=== PATIENT | male | born 2000 | race Caucasian/White ===

== ENCOUNTER 2020-01-06 00:59 | Outpatient (CLI) | payer BC, SELFPAY ==
[2020-01-06 16:30] LABS: Abs Immature Grans 0.01 k/cumm (0.0-0.09); Absolute Basophil Count 0.03 k/cumm (0.0-0.2); Absolute Lymphocyte Count 2.07 k/cumm (1.2-3.4); Absolute Monocyte Count 0.64 k/cumm (0.11-0.7); Absolute Neutrophil Count 4.04 k/cumm (1.2-6.7); Basophils % 0.4; Eosinophils % 4.2; HCT 42.4 % (40.0-50.0); HGB 14.8 g/dL (13.5-17.5); Immature Grans % 0.1 %; Lymphocytes % 29.2; Mean Corp. HGB Concentration 34.9 g/dL (32.0-36.0); Mean Corpuscular Hemoglobin 30.6 pg (27.0-33.0); Mean Corpuscular Volume 87.8 fL (80-95); Mean Platelet Volume 9.2 fL (8.0-11.0); Neutrophils % 57.1; Platelet Count 296 x1000/uL (130-400); RBC 4.83 m/cumm (4.50-6.00); RBC Distribution Width 12.7 % (11.8-14.1); White Blood Cell Count 7.09 k/cumm (4.4-10.8)
[2020-01-06 17:04] LABS: ALT 15 U/L (16-63); AST 21 U/L (15-37); Calculated LDL 107 mg/dL (<100); Cholesterol 177 mg/dL (<200); HDL Cholesterol 30 mg/dL (40-60); Triglyceride 201 mg/dL (<150)
== END 2020-01-06 01:19 ==
PROVIDERS: PCP Pediatrics; Visit Provider Dermatology
DX: L70.0 Acne vulgaris (principal); Z79.899 Other long term (current) drug therapy
CPT/HCPCS: 36415; 80061; 84450; 84460; 85025

== ENCOUNTER 2020-02-09 02:44 | Outpatient (CLI) | payer BC, SELFPAY ==
[2020-02-09 17:10] LABS: Absolute Basophil Count 0.02 k/cumm (0.0-0.2); Absolute Eosinophil Count 0.24 k/cumm (0.0-0.7); Absolute Lymphocyte Count 2.21 k/cumm (1.2-3.4); Absolute Monocyte Count 0.63 k/cumm (0.11-0.7); Absolute Neutrophil Count 2.77 k/cumm (1.2-6.7); Basophils % 0.3; Eosinophils % 4.1; HCT 42.9 % (40.0-50.0); HGB 14.8 g/dL (13.5-17.5); Lymphocytes % 37.6; Mean Corp. HGB Concentration 34.5 g/dL (32.0-36.0); Mean Corpuscular Hemoglobin 29.9 pg (27.0-33.0); Mean Corpuscular Volume 86.7 fL (80-95); Mean Platelet Volume 9.2 fL (8.0-11.0); Monocytes % 10.7; Neutrophils % 47.3; Platelet Count 309 x1000/uL (130-400); RBC 4.95 m/cumm (4.50-6.00); RBC Distribution Width 12.8 % (11.8-14.1); White Blood Cell Count 5.87 k/cumm (4.4-10.8)
[2020-02-09 17:52] LABS: ALT 16 U/L (16-63); AST 22 U/L (15-37); Calculated LDL 112 mg/dL (<100); Cholesterol 171 mg/dL (<200); HDL Cholesterol 32 mg/dL (40-60); Triglyceride 137 mg/dL (<150)
== END 2020-02-09 03:04 ==
PROVIDERS: PCP Pediatrics; Visit Provider Dermatology
DX: L70.0 Acne vulgaris (principal); Z79.899 Other long term (current) drug therapy
CPT/HCPCS: 36415; 80061; 84450; 84460; 85025

== ENCOUNTER 2020-06-18 10:53 | Emergency (ER) | payer BC, SELFPAY ==
[2020-06-18 10:56] VITALS: BP 131/77; PULSE 80; RESP 16; TEMP 36.1; O2SAT 94
--- NOTE | 2020-06-18 11:00 | DI.RAD_ITS ---
EXAM: XR HAND RT COMPLETE CLINICAL HISTORY: struck on engine block TECHNIQUE: COMPARISON: No exams were available for comparison FINDINGS: Three views were obtained. No fracture is seen. IMPRESSION: RADIATION DOSE DELIVERED: Total DLP
--- NOTE | 2020-06-18 11:36 | ED.GENADUL_ITS ---
Discharge Plan Disposition Patient Disposition: HOME Condition: Stable Discharge Details Clinical Impression: Contusion of hand Primary Care Provider: Jewel Rae ED Provider: Bravo Nolasco Home Meds and New Rx's Prescriptions: Continued epinephrine [EpiPen 2-Matthew] 0.3 MG/0.3 ML auto-injector 1 dose IM PRN Qty: 1 RF: 0 Flovent HFA 10.6 GM HFA aerosol inhaler 2 puff Inhalation BID Qty: 1 RF: 12 levalbuterol tartrate [Xopenex HFA] 15 GM HFA aerosol inhaler 2 puff Inhalation Q4H PRN Qty: 1 RF: 12 isotretinoin 30 mg capsule 60 mg PO DAILY RF: 0 Discharge Instructions Instructions: Contusion in Adults (ED) Additional Instructions: X-ray is unremarkable. Rest, elevate, cool compresses every 2 hours for 20 minutes. [id number] Tylenol and/or Motrin as directed for discomfort. Please watch for new or worsening symptoms and return to the ER for any concerns. Medical Decision Making 19-year-old gentleman, [id number], presents for right hand discomfort that occurred 4 days ago when he accidentally struck his hand while working on his car. Denies any other injury. Denies numbness, tingling, weakness. He appears well, nontoxic, no acute distress. Neuro, vascular, tendon intact. Will obtain x-ray and reassess Reviewed by me and confirmed by radiology as no fracture. Discussed findings with patient. He is relieved. We discussed treatment options, he declines splint. Medical Records Medical records reviewed: Yes I reviewed the patient's medical records. HPI General Mode of arrival: ambulatory . Date/Time Provider Initiated Documentation: 06/18/20 11:00 . Limitations to Documentation: no limitations . Information obtained by: patient . HPI Narrative: This is a 19-year-old gentleman who is right-hand dominant presenting for right hand injury that occurred 4 days ago. He was working on a car engine and accidentally struck his hand. It hurt minimally at that time but the following morning he had worsening pain and swelling. It is not getting better so he decided to come to the ER for evaluation. Denies any other injury. Denies numbness, tingling, weakness. There is no warmth or redness. He has not tried [id number] medications. Related Data Home Medications Medication Instructions Recorded Confirmed epinephrine [EpiPen 2-Mtathew] 1 dose IM PRN #1 pack 05/31/17 06/18/20 Flovent HFA 2 puff INHALATION BID #1 inhaler 02/01/18 06/18/20 levalbuterol tartrate [Xopenex HFA] 2 puff INHALATION Q4H PRN #1 02/01/18 06/18/20 inhaler isotretinoin 30 mg capsule 60 mg PO DAILY cap 01/02/20 06/18/20 Previous Rx's Medication Instructions Recorded Flovent HFA 2 puff INHALATION BID #1 inhaler 02/01/18 levalbuterol tartrate [Xopenex HFA] 2 puff INHALATION Q4H PRN #1 02/01/18 inhaler Allergies Allergy/AdvReac Type Severity Reaction Status Date / Time NUTS Allergy Unknown UNKNOWN Uncoded 06/18/20 10:59 General Stated Complaint: Orthopedic CESAR: 4 Review of Systems Constitutional Constitutional: Denies fever(s) and Denies weakness Musculoskeletal Musculoskeletal: Denies deformity, Denies numbness, Reports stiffness and Denies tingling Integumentary/Breasts Skin/Breast: Denies rash Neurologic Neurologic: Denies numbness, Denies tingling and Denies weakness [facility] Medical History (Updated 06/18/20 @ 12:00 by COREY Willson) Acne Asthma Nut allergy Surgical History Circumcision Family History Mother Healthy adult on routine physical examination Father Mental disorder Asthma Brother Asthma Other Essential hypertension Personal history of malignant neoplasm MGM-thyroid Hyperlipidemia Social History Smoking/Tobacco Use Status: Never Alcohol Intake: never Substance use type: does not use Exam Const General: cooperative, healthy appearing, comfortable and no acute distress Orientation: alert and awake HENMT Head: normal to inspection, normocephalic and atraumatic Mouth: moist mucous membranes Eyes Conjunctivae: conjunctivae normal Sclera: sclerae normal Neck Neck: normal visual inspection, trachea midline and supple Resp Effort & Inspection: normal respiratory effort and able to speak in complete sentences Cardio Rate: regular rate Rhythm: regular rhythm Skin General skin exam: no rashes or lesions noted Neuro General: patient alert, patient awake, moves all extremities and no focal motor deficits Speech: speech normal Gait: normal gait Motor: muscle tone normal throughout Sensory Exam: no sensory deficits noted Extrem Right upper extremity: full ROM, normal capillary refill and wrist Details: normal to inspection, normal ROM and normal vascular exam; no tenderness and no swelling Hand/finger images: 1. Mild swelling, discomfort. Skin is intact. Full range of motion. Neuro, vascular, tendon intact. Psych Appearance: grossly normal Mental Status: mental status grossly normal Course Vital Signs Vital signs: Vital Signs Temperature 36.1 C L 06/18/20 10:56 Pulse 80 06/18/20 10:56 Respiratory Rate 16 06/18/20 10:56 Blood Pressure 131/77 06/18/20 10:56 Pulse Oximetry 94 06/18/20 10:56 Temperature 36.1 C L 06/18/20 10:56 Temperature Source Skin 06/18/20 10:56 Pulse 80 06/18/20 10:56 Respiratory Rate 16 06/18/20 10:56 Respiratory Effort Non-Labored 06/18/20 10:56 Blood Pressure 131/77 06/18/20 10:56 Blood Pressure Position Sitting 06/18/20 10:56 Pulse Oximetry 94 06/18/20 10:56 Oxygen Delivery Method Room Air 06/18/20 10:56 Oxygen Flow Rate 0 06/18/20 10:56 Pain Level 7 06/18/20 10:58
== END 2020-06-18 12:06 | disposition home or self-care (01) ==
PROVIDERS: Emergency Provider Physician Assistant; PCP Pediatrics
DX: S60.221A Contusion of right hand, initial encounter (principal); W22.09XA Striking against other stationary object, initial encounter; R22.31 Localized swelling, mass and lump, right upper limb
CPT/HCPCS: 99283; 73130